=== PATIENT | male | born 1960 | race Caucasian/White ===

== ENCOUNTER 2025-04-05 19:04 | Emergency (ER) | payer MEDICARE, BC, SELFPAY ==
[2025-04-05 19:10] VITALS: BP 130/70
[2025-04-05 19:42] LABS: Hematocrit 37.1 % (39.0-52.0); Hemoglobin 13.2 g/dL (13.0-18.0); Mean Corp Hgb Conc. 35.6 g/dL (33.0-37.0); Mean Corpuscular Volume 88.8 fL (80.0-94.0); Nucleated Red Blood Cells % 0 % (-); Platelet Count 178 10^3/uL (130-400); Red Cell Dist. Width 12.5 % (11.5-14.5)
[2025-04-05 20:03] LABS: ALT (SGPT) 41 U/L (0-50); AST (SGOT) 41 U/L (17-59); Albumin 4.4 g/dl (3.5-5.0); Alkaline Phosphatase 76 U/L (38-126); Blood Urea Nitrogen 21 mg/dl (9-20); Calcium 8.9 mg/dl (8.4-10.2); Carbon Dioxide 20 mmol/L (22-30); Chloride 107 mmol/L (98-107); Glucose 101 mg/dl (70-99); Potassium 4.0 mmol/L (3.5-5.1); Sodium 137 mmol/L (135-145); Total Protein 7.2 g/dl (6.3-8.2); eGFR > 60.00
[2025-04-05 22:03] VITALS: BP 138/79
--- NOTE | 2025-04-05 22:14 | ED.GENMED ---
History of Present Illness
<González David MD, Resident - Last Filed: 04/06/25 02:03>
General
Chief Complaint: Fever
Source: patient
Exam Limitations: none
Time Seen by Provider: 04/05/25 22:02
History of Present Illness
History of Present Illness:
64-year-old male with past medical history of diverticulitis, cystitis comes to the ED due to recent abdominal pressure, and on and off fever and chills for the past few days. He says that he has been constipated around a day and a half and had
fever of 101 F at home today. He says that he has been feeling gassy and burping had abdominal discomfort which is similar to how he felt when he had diverticulitis last year. It was treated with oral antibiotic treatment last year and he did not
have any issues again until a few days ago. He states that he has also had a cough for the past couple days. Nonproductive but it is similar causes that in the past. He said that he was exposed to toxins after 05/16 and he always gets a cough with
any abdominal discomfort. He also states that he was diagnosed with Lyme disease about 6 months ago and had a positive lab test. He also states that he is scheduled for cystoscopy for his recurrent UTIs on April 11. He states that he has been
urinating normally just more frequently. Says that he has no medications. States that he was feeling extra dizzy when he came in, but symptoms resolved once he had more water
Past History
<González David MD, Resident - Last Filed: 04/06/25 02:03>
Past History
ED Past Medical History: Other (Diverticulitis) and Other (Recurrent UTI)
Social History
Tobacco: Non-smoker
Alcohol: Occasional (1-2 times a month)
Drug: None
Review of Systems
<González David MD, Resident - Last Filed: 04/06/25 02:03>
Review of Systems
Allergies reviewed?: Yes
Constitutional: Reports fever and chills
EENT: Reports no symptoms
Respiratory: Reports cough
Cardiac: Reports no symptoms
ABD/GI: Reports abdominal pain (Pressure around left lower quadrant)
: Reports frequency
Musculoskeletal: Reports no symptoms
Skin: Reports no symptoms
Neurological: Reports no symptoms
Endocrine: Reports no symptoms
Hematologic/Lymphatic: Reports no symptoms
Psychiatric: Reports no symptoms
Phy Exam
<González David MD, Resident - Last Filed: 04/06/25 02:03>
General Physical Exam
General Presentation: well appearing
General Skin: warm and dry
General Habitus: normal
General Mental: alert
General Hydration: appears well hydrated
Cardiovascular Exam
Cardiovascular Exam: regular rate/rhythm, no edema and no murmur
Pulmonary Exam
Pulmonary Exam: lungs clear, no respiratory distress, no rales and no crackles
Gastrointestinal Exam
Gastrointestinal Exam: normal bowel sounds, soft and non distended
Palpation: left lower quadrant: Mild tenderness
Course
<González David MD, Resident - Last Filed: 04/06/25 02:03>
Orders/Labs/Results
Orders:
Orders
04/05/25 19:13
Electrocardiogram (*1) Urgent
Reason for Study: Other
Other Reason for Exam: Possible Sepsis
04/05/25 19:14
EKG- Treatment ONCE
CR Chest - 2 Views Urgent
Comment:
Reason For Exam: suspected infection
04/05/25 19:33
Complete Blood Count/With Diff Urgent
Comprehensive Metabolic Panel Urgent
Lactic Acid Q4H
Comment: ON ICE, CANCEL 2ND ORDER IF FIRST LACTIC ACID LEVEL <2
Blood Culture Q20M
SANDOVAL Source: Blood/Venous
Specimen Description:
Comment: Urgent from separate sites. If patient screens positive for possible sepsis
Blood Culture Q20M
SANDOVAL Source: Blood/Venous
Specimen Description:
Comment: Urgent from separate sites. If patient screens positive for possible sepsis
04/05/25 22:43
0.9% Sodium Chloride 500 ml [Nss] 500 ml IV BOLUS
04/05/25 23:19
Ipratropium/Albuterol Sulfate [Duoneb] 3 ml INH R NOW ONE
Ketorolac [Toradol] 15 mg IV NOW STA
04/05/25 23:49
Urinalysis Reflex To Culture Urgent
Date Specimen was Collected: 04/05/25
Time Specimen was Collected: 23:28
Urine Microscopic Reflex Cult Urgent
Urine Culture Urgent
SANDOVAL Source: U
Specimen Description:
Date Specimen was Collected: 04/05/25
Time Specimen was Collected: 23:28
04/06/25 00:00
CT Abd/pelvis W Iv Cont Urgent
Reason For Exam: Left lower quadrant abdominal pain
04/06/25 01:04
Cephalexin Monohydrate [Keflex] 500 mg PO NOW STA
04/06/25 01:40
Prednisone [Deltasone] 40 mg PO DAILY
04/06/25 08:00
Prednisone [Deltasone] 40 mg PO DAILY
Abnormal Lab Results
04/05/25 04/05/25
19:33 23:49
RBC 4.18 L 10^6/uL
(4.70-6.10)
Hct 37.1 L %
(39.0-52.0)
MCH 31.6 H pg
(27.0-31.0)
MPV 10.5 H fL
(7.4-10.4)
Abs Immat Gran (auto) 0.1 H 10^3/uL
(0-0.05)
Absolute Neuts (auto) 8.2 H 10^3/uL
(1.4-6.5)
Absolute Lymphs (auto) 0.6 L 10^3/uL
(1.2-3.4)
Absolute Monos (auto) 0.9 H 10^3/uL
(0.1-0.6)
Immature Gran % 0.6 H %
(0-0.5)
Neutrophils % 83.0 H %
(42.2-75.2)
Lymphocytes % 6.5 L %
(20.5-51.1)
Carbon Dioxide 20 L mmol/L
(22-30)
BUN 21 H mg/dl
(9-20)
Glucose 101 H mg/dl
(70-99)
Ur Occult Blood Reflex 3+ A
(Negative)
Urine Nitrite (Reflex) Positive A
(Negative)
Leukocyte Esterase Rfl 3+ A
(Negative)
Urine RBC 3-6 A /HPF
(0-2)
Urine WBC (Reflex) 60-70 A /HPF
(0-5)
Urine Bacteria (Reflex) Many A
(Negative)
Urine Albumin (Reflex) 2+ A
(Neg - Trace)
04/05/25 19:33
04/05/25 19:33
Vital Signs
Initial and Last Documented VS:
Initial Vital Signs
Temp Pulse Resp BP Pulse Ox
98.8 F 124 18 130/70 98
04/05/25 19:10 04/05/25 19:10 04/05/25 19:10 04/05/25 19:10 04/05/25 19:10
Last Documented Vital Signs
Temp Pulse Resp BP Pulse Ox
98.8 F 92 18 119/71 96
04/06/25 01:27 04/06/25 01:27 04/06/25 01:27 04/06/25 01:27 04/06/25 01:27
<Lili Agosto, DO - Last Filed: 04/06/25 01:07>
Orders/Labs/Results
Orders:
Orders
04/05/25 19:13
Electrocardiogram (*1) Urgent
Reason for Study: Other
Other Reason for Exam: Possible Sepsis
04/05/25 19:14
EKG- Treatment ONCE
CR Chest - 2 Views Urgent
Comment:
Reason For Exam: suspected infection
04/05/25 19:33
Complete Blood Count/With Diff Urgent
Comprehensive Metabolic Panel Urgent
Lactic Acid Q4H
Comment: ON ICE, CANCEL 2ND ORDER IF FIRST LACTIC ACID LEVEL <2
Blood Culture Q20M
SANDOVAL Source: Blood/Venous
Specimen Description:
Comment: Urgent from separate sites. If patient screens positive for possible sepsis
Blood Culture Q20M
SANDOVAL Source: Blood/Venous
Specimen Description:
Comment: Urgent from separate sites. If patient screens positive for possible sepsis
04/05/25 22:43
0.9% Sodium Chloride 500 ml [Nss] 500 ml IV BOLUS
04/05/25 23:19
Ipratropium/Albuterol Sulfate [Duoneb] 3 ml INH R NOW ONE
Ketorolac [Toradol] 15 mg IV NOW STA
04/05/25 23:49
Urinalysis Reflex To Culture Urgent
Date Specimen was Collected: 04/05/25
Time Specimen was Collected: 23:28
Urine Microscopic Reflex Cult Urgent
Urine Culture Urgent
SANDOVAL Source: U
Specimen Description:
Date Specimen was Collected: 04/05/25
Time Specimen was Collected: 23:28
04/06/25 00:00
CT Abd/pelvis W Iv Cont Urgent
Reason For Exam: Left lower quadrant abdominal pain
04/06/25 01:04
Cephalexin Monohydrate [Keflex] 500 mg PO NOW STA
04/06/25 01:40
Prednisone [Deltasone] 40 mg PO DAILY
04/06/25 08:00
Prednisone [Deltasone] 40 mg PO DAILY
Abnormal Lab Results
04/05/25 04/05/25
19:33 23:49
RBC 4.18 L 10^6/uL
(4.70-6.10)
Hct 37.1 L %
(39.0-52.0)
MCH 31.6 H pg
(27.0-31.0)
MPV 10.5 H fL
(7.4-10.4)
Abs Immat Gran (auto) 0.1 H 10^3/uL
(0-0.05)
Absolute Neuts (auto) 8.2 H 10^3/uL
(1.4-6.5)
Absolute Lymphs (auto) 0.6 L 10^3/uL
(1.2-3.4)
Absolute Monos (auto) 0.9 H 10^3/uL
(0.1-0.6)
Immature Gran % 0.6 H %
(0-0.5)
Neutrophils % 83.0 H %
(42.2-75.2)
Lymphocytes % 6.5 L %
(20.5-51.1)
Carbon Dioxide 20 L mmol/L
(22-30)
BUN 21 H mg/dl
(9-20)
Glucose 101 H mg/dl
(70-99)
Ur Occult Blood Reflex 3+ A
(Negative)
Urine Nitrite (Reflex) Positive A
(Negative)
Leukocyte Esterase Rfl 3+ A
(Negative)
Urine RBC 3-6 A /HPF
(0-2)
Urine WBC (Reflex) 60-70 A /HPF
(0-5)
Urine Bacteria (Reflex) Many A
(Negative)
Urine Albumin (Reflex) 2+ A
(Neg - Trace)
04/05/25 19:33
04/05/25 19:33
Vital Signs
Initial and Last Documented VS:
Initial Vital Signs
Temp Pulse Resp BP Pulse Ox
98.8 F 124 18 130/70 98
04/05/25 19:10 04/05/25 19:10 04/05/25 19:10 04/05/25 19:10 04/05/25 19:10
Last Documented Vital Signs
Temp Pulse Resp BP Pulse Ox
98.8 F 92 18 119/71 96
04/06/25 01:27 04/06/25 01:27 04/06/25 01:27 04/06/25 01:27 04/06/25 01:27
<González David MD, Resident - Last Filed: 04/06/25 02:03>
MDM/Problems Addressed
Differential Diagnosis Includes:
Pneumonia leading to possible sepsis, Diverticulitis, Cystitis
MDM/Problems Addressed:
Ordered CBC, CMP, Blood Cx drawn, Will get CXR. May have cardiopulmonary process due to continued cough but abdominal pain is the main concern.
EKG showed tachycardia and possible pulmonary process. Also showed possible inferior infarct. No acute chest pain or cardiac symptoms, less likely to be ACS.
CXR ordered, does not show any evidence of acute cardiopulmonary process on initial read, awaiting official read
Will get CT Abd/Pelv w/ IV contrast due to continued left lower quadrant abdominal pain
Will give bolus of IV fluids
Will get urinalysis to check for any urinary infection
Will give Toradol for increasing temperature, along with Duoneb treatment for cough
CXR official read-> negative for any acute cardiopulmonary process
Urinalysis shows signs of infection
CT Abd/Pelv read shows signs of Cystitis
Will give one dose of 500mg Keflex and for him to continue with the medication 2 times a day for 7 days
Will give him a dose of 40mg prednisone for his breathing. Treatment with duonebs really helped his cough symptoms
Gave instructions about following up for Cystoscopy on April 11.
<González David MD, Resident - Last Filed: 04/06/25 02:03>
*Pulse Oximetry
SaO2: 98
Oxygen Mode of Delivery: Room air
Patient hypoxic: no
*EKG
Interpreted by ED Provider?: Yes
Interpretation: abnormal
Rate: tachycardiac
Lyman: left axis deviation
Interval: normal interval
Ischemia: non-specific ST changes
*Heating Technician Interpretation
Rate: tachycardiac
Interpretation: normal
Heart Rate: 101
Rhythm: sinus
*Critical Care Note
Total Time (30-74mins, 75-104mins- exclusive of procedures): Not Applicable
ED Attending Note
<González David MD, Resident - Last Filed: 04/06/25 02:03>
-
Portions of this chart may have been created with voice recognition software.� Occasional wrong word or��sound alike� substitutions may have occurred due to the inherent limitations of voice recognition software.
<Lili Agosto DO - Last Filed: 04/06/25 01:07>
ED Attending Note
Patient seen and examined by attending physician: Yes
I performed the substantive portion of visit, reviewed & personally made and approve the management plan that is documented in note by myself or JIMMY.: Yes
I performed a history and physical exam of patient and discussed management with resident, I reviewed resident's note and agree with documented findings and plan of care.: Yes
ED Attending Note:
64-year-old male with prior history of diverticulitis presenting to the emergency department for fever and abdominal pain. Patient reports symptoms started yesterday. Notes that he last took Tylenol around 6 PM. He feels that his abdominal pain
is similar to prior history of diverticulitis. Additionally notes 2 days of cough, nonproductive. Denies known sick contacts. Denies chest pain. Denies any vomiting. Reports some loose stools. Denies additional acute medical complaints. Vital
signs on arrival significant for tachycardia.
On exam patient is resting comfortably, nontoxic. No acute respiratory distress, lungs clear to auscultation. Patient with active dry cough. Temperature rechecked, now 99.6 orally. Suspect tachycardia is secondary to low-grade fever. Lower
suspicion for sepsis given well clinical appearance. On abdominal exam, focal tenderness in left lower quadrant with suspicion for diverticulitis. No rebound or guarding or concern for complicating features. Laboratory analysis obtained, normal
WBC. Chest x-ray without sign of acute pneumonia. For patient's cough, will start patient on DuoNeb. Plan for CT abdominal imaging for evaluation of acute diverticulitis. Patient also notes history of UTI in the past. Will send urinalysis.
01:00-CT shows cystitis. No additional evidence of acute process. Urine is consistent with a urinary tract infection. Suspected source of patient's lower abdominal discomfort. No sign of pyelonephritis. Suspect acute UTI with concomitant
bronchitis. Will start patient on steroid and inhaler. Otherwise feel stable for discharge. Return precautions discussed and patient verbalized understanding
Discharge Plan
Departure
Patient Disposition: Home (Routine Discharge)
Date of Disposition: 04/06/25
Time of Disposition: 01:10
Patient with high blood pressure during this ER visit?: Yes
Discharge Problem:
Cystitis
Instructions: Urinary tract infection in adults - ED discharge instructions, BLOOD PRESSURE
Prescriptions:
New
cephalexin 500 mg capsule
500 mg PO BID Qty: 13 0RF
prednisone 20 mg tablet
40 mg PO DAILY 4 Days Qty: 8 0RF
Referrals:
Vishal Hurst MD [Family Provider, Internal Medicine]
Activity Restrictions/Additional Instructions:
As discussed, take Cephalexin 500mg twice a day for 7 days. Take Prednisone 40mg for 4-5 days for your cough. As discussed follow up for cystoscopy scheduled for April 11.
Interventions
Interventions:
*Risk Screen - Suicide Last Done: 04/05/25 19:10
*General Assessment Last Done: 04/05/25 19:10
*Neglect/Abuse Screening Last Done: 04/05/25 19:10
*ED- Fall Risk Assessment Last Done: 04/06/25 01:57
*ED COVID-19 Vaccine History Last Done: 04/06/25 01:57
*Nursing Disposition Last Done: 04/06/25 01:57
ED- Neurological Assessment Last Done: 04/05/25 23:42
ED-Skin Assessment Last Done: 04/05/25 23:42
Discharge Date and Time
Discharge Date/Time: 04/06/25 02:03
Print Language: PARAGUAYAN
[2025-04-05 23:03] VITALS: BP 119/79
[2025-04-05 23:19] VITALS: BP 119/72
[2025-04-05] MEDS: NSS 500 IV (23:41)
[2025-04-05] MEDS: DUONEB 3 ML INH (23:43)
[2025-04-05] MEDS: TORADOL 15 MG IV (23:44)
[2025-04-05 23:51] VITALS: BMI 31.5
[2025-04-06 00:06] LABS: Urine Character Cloudy (Clear)
[2025-04-06 00:51] LABS: Urine White Cell 60-70 /HPF (0-5)
[2025-04-06 01:27] VITALS: BP 119/71
[2025-04-06] MEDS: DELTASONE 40 MG PO (01:51)
[2025-04-06] MEDS: KEFLEX 500 MG PO (01:51)
== END 2025-04-06 02:03 | disposition home or self-care (01) ==
LOC: EMR 19:04
PROVIDERS: Emergency Medicine; EMERGENCY PHYSICIAN Student in an Organized Health Care Education/Training Program; FAMILY PHYSICIAN Internal Medicine
DX: R10.32 Left lower quadrant pain (principal); R42 Dizziness and giddiness; K59.00 Constipation, unspecified; R05.9 Cough, unspecified; N30.00 Acute cystitis without hematuria; R03.0 Elevated blood-pressure reading, without diagnosis of hypertension; R00.0 Tachycardia, unspecified; K57.92 Diverticulitis of intestine, part unspecified, without perforation or abscess without bleeding; Z87.440 Personal history of urinary (tract) infections; Z88.0 Allergy status to penicillin
CPT/HCPCS: 99285; 96374; 96361; 94640; 71046; 74177; 80053; 81003; 81015; 83605; 85025; 87040; 87077; 87086; 93005; Q9967